=== PATIENT | female | born 1940 | race Caucasian/White ===

== ENCOUNTER 2017-01-10 10:30 | Outpatient (RCR) | payer MEDICARE ==
[2017-01-03] MEDS: IRON SUCROSE 200 MG/NS 100 ML (IVPB) IV SCH ×2 (13:19)
[2017-01-03 15:21] VITALS: BP 133/74
[2017-01-06] MEDS: IRON SUCROSE 200 MG/NS 100 ML (IVPB) IV SCH ×2 (11:59)
[2017-01-06 12:15] VITALS: BP 130/69
[~2017-01-10] VITALS: Ht 157.5 cm; Wt 72.6 kg
[2017-01-10 10:30] VITALS: BP 129/88
[~2017-01-10 10:30] MED LIST: ALPR0.254 PO; CHOL400T29 PO; CTLP20T PO; FELO10TA31 PO; GLYB1.253 PO; HYDR-3714 PO; IRON SUCROSE 200 MG/10 ML (VENOFER) VIAL IV ONE; IRON1CAP10 PO; LOVA40TA2 PO; MELO-198 PO; METF500T61 PO; NS (IVPB) 100 ML ONE; OMEP40CA36 PO; SPRN25T PO; [UNRECOGNIZED DRUG - OTHER] PO
== END 2017-04-03 | disposition home or self-care (01) ==
LOC: SDC 10:30
PROVIDERS: ATTEND Internal Medicine
DX: D50.9 Iron deficiency anemia, unspecified (principal)
CPT/HCPCS: 96365

== ENCOUNTER → 2018-01-23 | Outpatient (CLI) | payer MEDICARE ==
[~2018-01-23] MED LIST changes: -IRON SUCROSE 200 MG/10 ML (VENOFER) VIAL IV ONE; -NS (IVPB) 100 ML ONE
--- NOTE | 2018-01-23 16:43 | Diagnostic Imaging Report ---
INDICATION: Routine screening. COMPARISON: Prior mammogram from 01/13/2017 and 01/12/2016. EXAMINATION: 2D and 3D bilateral screening mammography was performed with CAD. The current study was also evaluated with a Computer Aided Detection (CAD) system. FINDINGS: Both breasts are heterogeneously dense, limiting the sensitivity of mammography. Benign calcifications are seen throughout both breasts. Nodular densities in both breasts appear stable and consistent with benign etiologies. No dominant mass or malignant appearing microcalcifications are seen. The axillae are unremarkable. IMPRESSION: No mammographic features suspicious for malignancy are identified. ACR BI-RADS Category 2: Benign findings. Result letter will be mailed to the patient. Note: At least 10% of breast cancer is not imaged by mammography. Dictated on workstation # [id number]
== END ==
LOC: RAD 10:39
PROVIDERS: ATTEND Internal Medicine
DX: Z12.31 Encounter for screening mammogram for malignant neoplasm of breast (principal)
CPT/HCPCS: 77067

== ENCOUNTER → 2018-03-23 | Outpatient (CLI) | payer MEDICARE | LOC: RT 13:38 | PROVIDERS: ATTEND Internal Medicine | DX: R06.2 Wheezing (principal) | CPT/HCPCS: 94060; 94729 ==